=== PATIENT | female | born 2000 | race Caucasian/White ===

== ENCOUNTER 2023-10-08 11:43 | Outpatient (CLI) | payer BC, SELFPAY | END 2023-10-08 11:44 | disposition home or self-care (01) | LOC: LKVREF 11:44 | PROVIDERS: PCP Registered Nurse General Practice; Visit Provider Family Medicine | DX: R39.9 Unspecified symptoms and signs involving the genitourinary system (principal) | CPT/HCPCS: 87086; 87186 ==